=== PATIENT | female | born 1940 ===

== ENCOUNTER 2018-02-17 03:45 | Emergency (ER) | payer MEDICARE, OTHER ==
[2018-02-17 04:00] VITALS: BMI 37.0
[2018-02-17 04:06] VITALS: RESP 18; TEMP 98.7; O2SAT 98
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
[2018-02-17 05:40] VITALS: BP 134/90; PULSE 84
== END 2018-02-17 05:44 | disposition home or self-care (01) ==
LOC: H.ER 03:45
DX: F23 Brief psychotic disorder (principal); Z00.8 Encounter for other general examination

== ENCOUNTER 2018-02-18 08:18 | Inpatient (IN) | payer MEDICARE, OTHER ==
[2018-02-18 08:21] VITALS: BMI 29.2
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
[2018-02-18 09:03] LABS: BASO % 0.7 % (0.0-2.0); EOS # 0.1 K/uL (0.0-0.7); EOS % 1.2 % (0.0-4.0); HEMOGLOBIN 10.5 g/dL (12.0-16.0); LYMPH # 0.6 K/uL (1.0-4.3); LYMPH % 10.8 % (20.0-40.0); MEAN CELL VOLUME 80.4 fl (81.0-99.0); MEAN CORPUSCULAR HEMOGLOBIN 25.1 pg (27.0-31.0); MEAN CORPUSCULAR HGB CONC 31.2 g/dL (33.0-37.0); MONO # 0.6 K/uL (0.0-0.8); MONO % 10.9 % (0.0-10.0); NEUT # 4.1 K/uL (1.8-7.0); NEUT % 76.4 % (50.0-75.0); NRBC % 0.1 % (0.0-0.0); RBC 4.21 Mil/uL (3.80-5.20); RED CELL DISTRIBUTION WIDTH 17.5 % (11.5-14.5); WHITE BLOOD COUNT 5.3 K/uL (4.8-10.8)
[2018-02-18 09:29] LABS: ALB/GLOB RATIO 1.4 (1.0-2.1); ALBUMIN 4.3 g/dL (3.5-5.0); ALT/SGPT 32 U/L (9-52); AST/SGOT 36 U/L (14-36); BLOOD UREA NITROGEN 21 mg/dl (7-17); CALCIUM 9.1 mg/dL (8.4-10.2); GFR NON-AFRICAN AMERICAN > 60
[2018-02-18 09:29] LABS: SQUAMOUS EPITHIAL 29 /hpf (0-5); URINE BACTERIA FEW (<OCC); URINE BILIRUBIN NEGATIVE (NEGATIVE); URINE BLOOD SMALL (NEGATIVE); URINE CLARITY CLOUDY (Clear); URINE COLOR YELLOW (YELLOW); URINE GLUCOSE (UA) NEG (NEGATIVE); URINE LEUKOCYTE ESTERASE LARGE Leu/uL (Negative); URINE PROTEIN 30 mg/dL (NEGATIVE); URINE UROBILINOGEN 0.2-1.0 mg/dL (0.2-1.0)
[2018-02-18 09:52] LABS: BARBITURATES, UR NEGATIVE (NEGATIVE); BENZODIAZEPINES, UR NEGATIVE (NEGATIVE); OPIATES, UR NEGATIVE (NEGATIVE); PHENCYCLIDINE, UR NEGATIVE (NEGATIVE)
--- NOTE | 2018-02-18 10:00 | CT ---
Date of service: 02/18/2018 PROCEDURE: CT HEAD WITHOUT CONTRAST. HISTORY: AMS COMPARISON: Comparison made with prior CT scan brain 12/21/2009. TECHNIQUE: Axial computed tomography images were obtained through the head/brain without intravenous contrast. Radiation dose: Total exam DLP = 751.17 mGy-cm. This CT exam was performed using one or more of the following dose reduction techniques: Automated exposure control, adjustment of the mA and/or kV according to patient size, and/or use of iterative reconstruction technique. FINDINGS: HEMORRHAGE: No acute parenchymal, subarachnoid or extra-axial hemorrhage. BRAIN: Suspect minor chronic periventricular white matter ischemic changes. Moderate generalized volume loss. Mild vascular calcifications both carotid siphons and vertebral arteries. VENTRICLES: Unremarkable. No hydrocephalus. CALVARIUM: No acute calvarial fractures. PARANASAL SINUSES: Unremarkable as visualized. No significant inflammatory changes. MASTOID AIR CELLS: Unremarkable as visualized. No inflammatory changes. OTHER FINDINGS: None. IMPRESSION: No acute intracranial hemorrhage. Suspect minor chronic periventricular white matter ischemic changes. Moderate generalized volume loss.
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
[2018-02-18] MEDS ORDERED: Potassium Chloride 20 mEq/15 ml LIQ UD PO ONE (15:05)
[2018-02-18] MEDS ORDERED: Potassium Chloride 20 mEq ER Tab PO ONE ×2 (15:41→16:00)
[2018-02-18] MEDS ORDERED: cefTRIAXone (Rocephin) 1 gm Inj ONE (15:43)
--- NOTE | 2018-02-18 18:16 | RAD ---
Date of service: 02/18/2018 HISTORY: SOB COMPARISON: No prior. FINDINGS: LUNGS: Bibasilar opacities right greater than left likely represents atelectasis however developing infiltrates could be excluded with follow-up radiographs. PLEURA: No significant pleural effusion identified, no pneumothorax apparent. CARDIOVASCULAR: No a significant aortic atherosclerotic calcification present. Normal cardiac size. No pulmonary vascular congestion. OSSEOUS STRUCTURES: No significant abnormalities. VISUALIZED UPPER ABDOMEN: Normal. OTHER FINDINGS: None. IMPRESSION: Bibasilar opacities right greater than left likely represents atelectasis however developing infiltrates could be excluded with follow-up radiographs.
--- NOTE | 2018-02-18 23:47 | CARD ---
APPROVED REPORT Date of service: 02/18/2018 EKG Measurement Heart [id number] <Conclusion> Sinus rhythm with frequent premature atrial complexes Otherwise normal ECG
[2018-02-19 07:42] LABS: BLOOD UREA NITROGEN 19 mg/dl (7-17); CALCIUM 8.2 mg/dL (8.4-10.2); GFR NON-AFRICAN AMERICAN > 60
[2018-02-19 07:45] LABS: HEMOGLOBIN 10.2 g/dL (12.0-16.0); MEAN CORPUSCULAR HEMOGLOBIN 25.1 pg (27.0-31.0); MEAN CORPUSCULAR HGB CONC 31.7 g/dL (33.0-37.0); RBC 4.06 Mil/uL (3.80-5.20); RED CELL DISTRIBUTION WIDTH 17.7 % (11.5-14.5); WHITE BLOOD COUNT 4.6 K/uL (4.8-10.8)
--- NOTE | 2018-02-19 09:03 | CP.PCM.CON ---
History of Present Illness - History of Present Illness History of Present Illness: Psychiatry consult note CC: Acute paranoia/UTI HPI: 77 yo female w/ no known past psychiatric history, presents w/ acute paranoia about her neighbors turning off their electricity when she turns off their lights and also that they may be stealing her belongings and breaking into her apartment in the context of acute UTI. Patient has poor insight/judgment. She does not believe she has a UTI, despite being told by her primary doctors and advertising writer. She does not believe she is paranoid. She does not want acute psychiatric admission. Senior Consultant explained to patient that she would benefit from treatment with an antipsychotic such as Risperdal. She denies depression/anxiety/AH/VH/SI/HI. A + O x 3. PPHx: Denies past psychiatric history PMHX: Patient denies having any acute medical issues; h/o appendectomy SHx: Lives alone, denies drugs/etoh/cig use MSE: A + O x 3, calm, cooperative, mood/affect-broad/neutral, thought process- coherent, thought content- +Paranoia, denies AH/VH, speech normal, no SI/HI; poor I/J Impression: 77 yo female presents w/ paranoia in the context of UTI; acute psychosis could be secondary to acute UTI. Patient will need to be monitored to see if psychotic symptoms improve with treatment of UTI. -Recommend to start Risperdal 0.25 mg PO Daily@1700 -Patient not agreeable to inpatient psychiatric admission at this time -Recommend psychology consult to evaluate neurocognitive function Past Patient History - Past Medical History & Family History Past Medical History?: No - Past Social History Smoking Status: Never Smoked - CARDIAC Hx Cardiac Disorders: No Hx Hypertension: No - PULMONARY Hx Tuberculosis: No - NEUROLOGICAL HX Cerebrovascular Accident: No Hx Seizures: No - HEENT Hx HEENT Problems: No - RENAL Hx Chronic Kidney Disease: No - ENDOCRINE/METABOLIC Hx Endocrine Disorders: No - HEMATOLOGICAL/ONCOLOGICAL Hx Cancer: No Hx Human Immunodeficiency Virus (HIV): No - INTEGUMENTARY Hx Dermatological Problems: No - MUSCULOSKELETAL/RHEUMATOLOGICAL Hx Musculoskeletal Disorders: No Hx Falls: No - GASTROINTESTINAL Hx Gastrointestinal Disorders: No - GENITOURINARY/GYNECOLOGICAL Hx Genitourinary Disorders: No Hx Sexually Transmitted Disorders: No - PSYCHIATRIC Hx Substance Use: No - SURGICAL HISTORY Hx Surgeries: Yes Hx Appendectomy: Yes - ANESTHESIA Hx Anesthesia: Yes Hx Anesthesia Reactions: No Hx Malignant Hyperthermia: No Has any member of the family had a problem w/ anesthesia?: No Meds Allergies/Adverse Reactions: Allergies Allergy/AdvReac Type Severity Reaction Status Date / Time No Known Allergies Allergy Verified 02/17/18 04:00 - Medications Medications: Current Medications Enoxaparin Sodium (Lovenox) 40 mg SC DAILY [facility]; Protocol Ceftriaxone Sodium 1 gm/ (Sodium Chloride) 100 mls @ 100 mls/hr IVPB DAILY [facility]; Protocol Last Admin: 02/18/18 15:43 Dose: 100 mls/hr Results - Vital Signs Recent Vital Signs: Last Vital Signs Temp 98.0 F 02/19/18 08:07 Pulse 54 L 02/19/18 08:07 Resp 18 02/19/18 08:07 BP 163/79 H 02/19/18 08:07 Pulse Ox 97 02/19/18 08:07 - Labs Result Diagrams: 02/19/18 05:30 02/19/18 05:30 Labs: Laboratory Results - last 24 hr 02/18/18 02/18/18 02/18/18 08:45 08:45 09:00 WBC 5.3 RBC 4.21 Hgb 10.5 L Hct 33.8 L MCV 80.4 L MCH 25.1 L MCHC 31.2 L RDW 17.5 H Plt Count 261 MPV 9.0 Neut % (Auto) 76.4 H Lymph % (Auto) 10.8 L [place] % (Auto) 10.9 H Eos % (Auto) 1.2 Baso % (Auto) 0.7 Neut # (Auto) 4.1 Lymph # (Auto) 0.6 L [place] # (Auto) 0.6 Eos # (Auto) 0.1 Baso # (Auto) 0.0 ESR Sodium 142 Potassium 3.4 L Chloride 106 Carbon Dioxide 25 Anion Gap 14 BUN 21 H Creatinine 0.7 Est GFR ( Amer) > 60 Est GFR (Non-Af Amer) > 60 Random Glucose 107 H Calcium 9.1 Phosphorus Magnesium Total Bilirubin 1.0 AST 36 ALT 32 Alkaline Phosphatase 77 Troponin I < 0.0120 Total Protein 7.4 Albumin 4.3 Globulin 3.1 Albumin/Globulin Ratio 1.4 Vitamin B12 TSH 3rd Generation Urine Color Urine Clarity Urine pH Ur Specific [place] Urine Protein Urine Glucose (UA) Urine Ketones Urine Blood Urine Nitrate Urine Bilirubin Urine Urobilinogen Ur Leukocyte Esterase Urine RBC (Auto) Urine Microscopic WBC Ur Squamous Epith Cells Urine Bacteria Urine Opiates Screen Negative Urine Methadone Screen Negative Ur Barbiturates Screen Negative Ur Phencyclidine Scrn Negative Ur Amphetamines Screen Negative U Benzodiazepines Scrn Negative U Oth Cocaine Metabols Negative U Cannabinoids Screen Negative Alcohol, Quantitative < 10 HIV-1 Ab Rapid Screen 02/18/18 02/19/18 02/19/18 09:00 05:30 05:30 WBC 4.6 L RBC 4.06 Hgb 10.2 L Hct 32.0 L MCV 79.0 L MCH 25.1 L MCHC 31.7 L RDW 17.7 H Plt Count 221 MPV Neut % (Auto) Lymph % (Auto) [place] % (Auto) Eos % (Auto) Baso % (Auto) Neut # (Auto) Lymph # (Auto) [place] # (Auto) Eos # (Auto) Baso # (Auto) ESR 21 Sodium 140 Potassium 3.9 Chloride 107 Carbon Dioxide 26 Anion Gap 11 BUN 19 H Creatinine 0.6 L Est GFR ( Amer) > 60 Est GFR (Non-Af Amer) > 60 Random Glucose 85 Calcium 8.2 L Phosphorus 3.7 Magnesium 2.1 Total Bilirubin AST ALT Alkaline Phosphatase Troponin I Total Protein Albumin Globulin Albumin/Globulin Ratio Vitamin B12 464 TSH 3rd Generation 2.93 Urine Color Yellow Urine Clarity Cloudy Urine pH 5.0 Ur Specific [place] 1.028 Urine Protein 30 Urine Glucose (UA) Neg Urine Ketones 20 Urine Blood Small Urine Nitrate Negative Urine Bilirubin Negative Urine Urobilinogen 0.2-1.0 Ur Leukocyte Esterase Large Urine RBC (Auto) 31 H Urine Microscopic WBC 145 H Ur Squamous Epith Cells 29 H Urine Bacteria Few H Urine Opiates Screen Urine Methadone Screen Ur Barbiturates Screen Ur Phencyclidine Scrn Ur Amphetamines Screen U Benzodiazepines Scrn U Oth Cocaine Metabols U Cannabinoids Screen Alcohol, Quantitative HIV-1 Ab Rapid Screen 02/19/18 05:30 WBC RBC Hgb Hct MCV MCH MCHC RDW Plt Count MPV Neut % (Auto) Lymph % (Auto) [place] % (Auto) Eos % (Auto) Baso % (Auto) Neut # (Auto) Lymph # (Auto) [place] # (Auto) Eos # (Auto) Baso # (Auto) ESR Sodium Potassium Chloride Carbon Dioxide Anion Gap BUN Creatinine Est GFR ( Amer) Est GFR (Non-Af Amer) Random Glucose Calcium Phosphorus Magnesium Total Bilirubin AST ALT Alkaline Phosphatase Troponin I Total Protein Albumin Globulin Albumin/Globulin Ratio Vitamin B12 TSH 3rd Generation Urine Color Urine Clarity Urine pH Ur Specific [place] Urine Protein Urine Glucose (UA) Urine Ketones Urine Blood Urine Nitrate Urine Bilirubin Urine Urobilinogen Ur Leukocyte Esterase Urine RBC (Auto) Urine Microscopic WBC Ur Squamous Epith Cells Urine Bacteria Urine Opiates Screen Urine Methadone Screen Ur Barbiturates Screen Ur Phencyclidine Scrn Ur Amphetamines Screen U Benzodiazepines Scrn U Oth Cocaine Metabols U Cannabinoids Screen Alcohol, Quantitative HIV-1 Ab Rapid Screen Non reactive
[2018-02-19] MEDS: Enoxaparin 40 mg Syringe SC SCH (09:04)
--- NOTE | 2018-02-19 11:53 | CP.PCM.PN ---
<JoseFranco - Last Filed: 02/19/18 11:56> Subjective - Date & Time of Evaluation Date of Evaluation: 02/19/18 Time of Evaluation: 10:25 - Subjective Subjective: Seen at bedside in not acute distress. Afebrile. Patient with poor insight about condition and states she was brought against her will to hosp, states people thinks she is having hallucinations but she is not. States she doesnt have UTI anymore because she only needed fluids. States hasnt been eating or driking for 3 days because she has stayed awake all the time to watch for the people that are trying to steal from them at home. Denies any urinary symptoms. Tolerating PO. As per patient she lives alone. Objective - Vital Signs/Intake and Output Vital Signs (last 24 hours): Temp Pulse Resp BP Pulse Ox 98.0 F 54 L 18 163/79 H 97 02/19/18 08:07 02/19/18 08:07 02/19/18 08:07 02/19/18 08:07 02/19/18 08:07 - Medications Medications: Current Medications Enoxaparin Sodium (Lovenox) 40 mg SC DAILY [facility]; Protocol Last Admin: 02/19/18 09:04 Dose: 40 mg Ceftriaxone Sodium 1 gm/ (Sodium Chloride) 100 mls @ 100 mls/hr IVPB DAILY [facility]; Protocol Last Admin: 02/19/18 09:04 Dose: 100 mls/hr Risperidone (Risperidone Odt 0.25mg) 0.25 mg PO DAILY@1700 [facility] - Labs Labs: 02/19/18 05:30 02/19/18 05:30 - Constitutional Appears: Non-toxic, Confused - Eye Exam Eye Exam: EOMI, PERRL - ENT Exam ENT Exam: Mucous Membranes Moist - Respiratory Exam Respiratory Exam: Clear to Ausculation Bilateral, NORMAL BREATHING PATTERN. absent: Decreased Breath Sounds - Cardiovascular Exam Cardiovascular Exam: Irregular Rhythm, +S1, +S2. absent: Gallop - GI/Abdominal Exam GI & Abdominal Exam: Soft, Normal Bowel Sounds. absent: Tenderness - Extremities Exam Extremities Exam: Full ROM. absent: Calf Tenderness, Tenderness - Back Exam Back Exam: absent: CVA tenderness (L), CVA tenderness (R) - Neurological Exam Neurological Exam: Alert, Awake, Oriented x3 - Psychiatric Exam Psychiatric exam: Anxious Additional comments: Poor insight. Paranoid - Skin Skin Exam: Normal Color, Warm Assessment and Plan - Assessment and Plan (Free Text) Assessment: 77 y/o F with NO PMHx was admitted for evaluation and management of paranoid behavior/hallucinations and urinary tract infection. Paranoid behaviour -Possibly due to UTI vs dementia. -Psychiatry consult, Dr Ford. Advised to start Risperdal and call Psychology consult for neurocognitive eval -F/U CBC, BMP, TSH, RPR, HIV, vitamin B12, folate, ordered -Continue 1:1 observation. Urinary Tract infection -IV Ceftriaxone daily -F/U Urine Culture. -Afebrile. NO White count. -Patient denies symptoms Microcitic anemia Likely chronic No signs of active bleeding Patient denies PMHx F/U Iron studies Hypokalemia -Resolved -K 3.9 today DVT Prophylaxis -SCD's -Lovenox 40mg daily. <Keshav Rivera D - Last Filed: 02/19/18 12:55> Objective - Vital Signs/Intake and Output Vital Signs (last 24 hours): Temp Pulse Resp BP Pulse Ox 98.0 F 54 L 18 163/79 H 97 02/19/18 08:07 02/19/18 08:07 02/19/18 08:07 02/19/18 08:07 02/19/18 08:07 - Medications Medications: Current Medications Enoxaparin Sodium (Lovenox) 40 mg SC DAILY [facility]; Protocol Last Admin: 02/19/18 09:04 Dose: 40 mg Ceftriaxone Sodium 1 gm/ (Sodium Chloride) 100 mls @ 100 mls/hr IVPB DAILY [facility]; Protocol Last Admin: 02/19/18 09:04 Dose: 100 mls/hr Risperidone (Risperidone Odt 0.25mg) 0.25 mg PO DAILY@1700 [facility] - Labs Labs: 02/19/18 05:30 02/19/18 05:30 Attending/Attestation - Attestation I have personally seen and examined this patient.: Yes I have fully participated in the care of the patient.: Yes I have reviewed all pertinent clinical information, including history, physical exam and plan: Yes Notes (Text): 02/19/18 12:54 Patient seen and examined with resident. Case discussed and agreed with assessment.
[2018-02-19 12:28] LABS: IRON 24 ug/dL (37-170)
[2018-02-19 12:37] LABS: % IRON SATURATION 7 % (20-55); TOTAL IRON BINDING CAPACITY 335 ug/dL (250-450)
[2018-02-19 13:27] LABS: FOLATE 11.6 ng/mL
[2018-02-19] MEDS: RISPERIDONE 0.25 MG ODT PO SCH (17:04)
[2018-02-20 06:08] LABS: MEAN CELL VOLUME 80.4 fl (81.0-99.0); MEAN CORPUSCULAR HGB CONC 31.1 g/dL (33.0-37.0); RBC 4.02 Mil/uL (3.80-5.20); RED CELL DISTRIBUTION WIDTH 17.7 % (11.5-14.5); WHITE BLOOD COUNT 5.1 K/uL (4.8-10.8)
[2018-02-20 06:26] LABS: BLOOD UREA NITROGEN 13 mg/dl (7-17); CALCIUM 8.1 mg/dL (8.4-10.2); GFR NON-AFRICAN AMERICAN > 60
[2018-02-20] MEDS: Enoxaparin 40 mg Syringe SC SCH (10:08)
--- NOTE | 2018-02-20 10:50 | CP.PCM.PN ---
<Rudi Ndiaye - Last Filed: 02/20/18 13:18> Subjective - Date & Time of Evaluation Date of Evaluation: 02/20/18 Time of Evaluation: 09:25 - Subjective Subjective: 77 y/o F was evaluated and examined by bedside. pt reports feeling better than ever, has NO physical complaints. Pt is awake, alert and oriented to person, time and place, pt is requesting to be discharged since she believes she can be treated as outpatient. --Pt states she was brought against her will, she denies having hallucinations but still concerned about her neighbors doing something to her. --To be evaluated by psychologist today. Objective - Vital Signs/Intake and Output Vital Signs (last 24 hours): Temp Pulse Resp BP Pulse Ox 97.5 F L 65 20 171/64 H 95 02/20/18 08:22 02/20/18 08:22 02/20/18 08:22 02/20/18 08:22 02/20/18 08:22 - Medications Medications: Current Medications Enoxaparin Sodium (Lovenox) 40 mg SC DAILY [facility]; Protocol Last Admin: 02/20/18 10:08 Dose: 40 mg Ferrous Sulfate (Feosol) 325 mg PO BID [facility] Last Admin: 02/20/18 10:08 Dose: 325 mg Ceftriaxone Sodium 1 gm/ (Sodium Chloride) 100 mls @ 100 mls/hr IVPB DAILY [facility]; Protocol Last Admin: 02/20/18 10:06 Dose: 100 mls/hr Risperidone (Risperidone Odt 0.25mg) 0.25 mg PO DAILY@1700 [facility] Last Admin: 02/19/18 17:04 Dose: 0.25 mg - Labs Labs: 02/20/18 05:35 02/20/18 05:35 - Constitutional Appears: No Acute Distress - Head Exam Head Exam: ATRAUMATIC, NORMAL INSPECTION - Eye Exam Eye Exam: EOMI - ENT Exam ENT Exam: Mucous Membranes Moist - Neck Exam Neck Exam: Full ROM, Normal Inspection - Respiratory Exam Respiratory Exam: NORMAL BREATHING PATTERN. absent: Rales, Rhonchi, Wheezes - Cardiovascular Exam Cardiovascular Exam: REGULAR RHYTHM, +S1, +S2 - GI/Abdominal Exam GI & Abdominal Exam: Soft. absent: Distended, Guarding, Rigid, Tenderness - Extremities Exam Extremities Exam: Full ROM. absent: Calf Tenderness, Pedal Edema - Back Exam Back Exam: Full ROM - Neurological Exam Neurological Exam: Alert, Awake, Oriented x3 Assessment and Plan - Assessment and Plan (Free Text) Assessment: 77 y/o F with NO PMHx was admitted for evaluation and management of paranoid behavior/hallucinations and urinary tract infection. PLAN: >Paranoid behaviour --Possibly due to UTI vs dementia. --Psychiatry consult, Dr Ford. --On Risperdone 0.25 PO daily --Psychology consult for neurocognitive evaluation --Continue 1:1 observation. --F/U psychologist recommendations. >Urinary Tract infection --Afebrile. NO White count. --C/w IV Ceftriaxone daily --Urine Culture showed E. Coli resistant to TMP/SMZ. >Microcitic anemia --likely iron deficiency anemia. Iron levels decreased --No signs of active bleeding --Feosol 325mg PO BID,. >DVT Prophylaxis --SCD's --Lovenox 40mg daily. <Keshav Rivera D - Last Filed: 02/20/18 17:21> Objective - Vital Signs/Intake and Output Vital Signs (last 24 hours): Temp Pulse Resp BP Pulse Ox 98.1 F 65 18 155/76 H 98 02/20/18 16:33 02/20/18 16:33 02/20/18 16:33 02/20/18 16:33 02/20/18 16:33 - Medications Medications: Current Medications Enoxaparin Sodium (Lovenox) 40 mg SC DAILY [facility]; Protocol Last Admin: 02/20/18 10:08 Dose: 40 mg Ferrous Sulfate (Feosol) 325 mg PO BID [facility] Last Admin: 02/20/18 16:13 Dose: 325 mg Ceftriaxone Sodium 1 gm/ (Sodium Chloride) 100 mls @ 100 mls/hr IVPB DAILY [facility]; Protocol Last Admin: 02/20/18 10:06 Dose: 100 mls/hr Risperidone (Risperidone Odt 0.25mg) 0.25 mg PO DAILY@1700 [facility] Last Admin: 02/20/18 16:13 Dose: 0.25 mg - Labs Labs: 02/20/18 05:35 02/20/18 05:35 Attending/Attestation - Attestation I have personally seen and examined this patient.: Yes I have fully participated in the care of the patient.: Yes I have reviewed all pertinent clinical information, including history, physical exam and plan: Yes Notes (Text): 02/20/18 17:21 Patient seen and examined with resident. Case discussed and agreed with assessment.
[2018-02-20 14:34] LABS: SQUAMOUS EPITHIAL 2 /hpf (0-5); URINE BILIRUBIN NEGATIVE (NEGATIVE); URINE BLOOD NEGATIVE (NEGATIVE); URINE CLARITY CLEAR (Clear); URINE COLOR STRAW (YELLOW); URINE GLUCOSE (UA) NEG (NEGATIVE); URINE LEUKOCYTE ESTERASE NEG Leu/uL (Negative); URINE PROTEIN NEGATIVE (NEGATIVE); URINE UROBILINOGEN 0.2-1.0 mg/dL (0.2-1.0)
[2018-02-20] MEDS: RISPERIDONE 0.25 MG ODT PO SCH (16:13)
[2018-02-21] MEDS: Enoxaparin 40 mg Syringe SC SCH (08:25)
--- NOTE | 2018-02-21 11:58 | CP.PCM.PN ---
<Rudi Ndiaye - Last Filed: 02/21/18 11:53> Subjective - Date & Time of Evaluation Date of Evaluation: 02/21/18 Time of Evaluation: 09:45 - Subjective Subjective: 77 y/o F was evaluated and examined by bedside. Pt reports feeling very well, with NO physical complaints. Pt understands that she is being treated for urinary tract infection. Pt requesting to leave hospital since she feels perfectly fine, still states she has seen her neighbor inside her house and stealing her stuff. -Sister, Dianne Price was contacted, who stated that pt started seeing people on her apartment since 1 month ago. Sister went to apartment and could not find anyone. Sister endorses that before hallucinations, pt was healthy in mind and body, pt usually takes care of herself and finances. Pt does not take any chronic regular medication and does NOT drink alcohol, uses tobacco or rec drugs. Pt's children live in [place] and they are always in contact with patient daily. Objective - Vital Signs/Intake and Output Vital Signs (last 24 hours): Temp Pulse Resp BP Pulse Ox 97 F L 71 20 172/80 H 98 02/21/18 08:27 02/21/18 08:27 02/21/18 08:27 02/21/18 08:27 02/20/18 16:33 - Medications Medications: Current Medications Enoxaparin Sodium (Lovenox) 40 mg SC DAILY [facility]; Protocol Last Admin: 02/21/18 08:25 Dose: 40 mg Ferrous Sulfate (Feosol) 325 mg PO BID [facility] Last Admin: 02/21/18 08:26 Dose: 325 mg Ceftriaxone Sodium 1 gm/ (Sodium Chloride) 100 mls @ 100 mls/hr IVPB DAILY [facility]; Protocol Stop: 02/22/18 11:00 Last Admin: 02/21/18 08:27 Dose: 100 mls/hr Risperidone (Risperidone Odt 0.25mg) 0.25 mg PO DAILY@1700 [facility] Last Admin: 02/20/18 16:13 Dose: 0.25 mg - Labs Labs: 02/20/18 05:35 02/20/18 05:35 - Constitutional Appears: Well, No Acute Distress - Head Exam Head Exam: ATRAUMATIC, NORMAL INSPECTION - Eye Exam Eye Exam: EOMI, Normal appearance - ENT Exam ENT Exam: Mucous Membranes Moist - Neck Exam Neck Exam: Full ROM, Normal Inspection - Respiratory Exam Respiratory Exam: NORMAL BREATHING PATTERN. absent: Rales, Rhonchi, Wheezes - Cardiovascular Exam Cardiovascular Exam: +S1, +S2 - GI/Abdominal Exam GI & Abdominal Exam: Soft, Normal Bowel Sounds. absent: Guarding, Rigid, Tenderness - Extremities Exam Extremities Exam: Full ROM, Normal Inspection. absent: Calf Tenderness, Pedal Edema - Neurological Exam Neurological Exam: Alert, Awake, Oriented x3 Assessment and Plan - Assessment and Plan (Free Text) Assessment: 77 y/o F with NO PMHx was admitted for evaluation and management of paranoid behavior/hallucinations and urinary tract infection. --Urine Culture showed E. Coli. PLAN: >Paranoid behaviour --Possibly due to UTI vs dementia. --Psychiatry consult, Dr Ford. --Risperdone 0.25 PO daily --Psychology consult for neurocognitive evaluation --Continue 1:1 observation. --Dementia work-up negative. --F/U psychologist recommendations. >Urinary Tract infection --Afebrile. NO White count. --C/w IV Ceftriaxone (Day 4) >Microcitic anemia --likely iron deficiency anemia. Iron levels decreased --No signs of active bleeding --Feosol 325mg PO BID,. >DVT Prophylaxis --SCD's --Lovenox 40mg daily. <Keshav Rivera - Last Filed: 02/21/18 13:23> Objective - Vital Signs/Intake and Output Vital Signs (last 24 hours): Temp Pulse Resp BP Pulse Ox 97 F L 71 20 172/80 H 98 02/21/18 08:27 02/21/18 08:27 02/21/18 08:27 02/21/18 08:27 02/20/18 16:33 - Medications Medications: Current Medications Enoxaparin Sodium (Lovenox) 40 mg SC DAILY [facility]; Protocol Last Admin: 02/21/18 08:25 Dose: 40 mg Ferrous Sulfate (Feosol) 325 mg PO BID [facility] Last Admin: 02/21/18 08:26 Dose: 325 mg Ceftriaxone Sodium 1 gm/ (Sodium Chloride) 100 mls @ 100 mls/hr IVPB DAILY [facility]; Protocol Stop: 02/22/18 11:00 Last Admin: 02/21/18 08:27 Dose: 100 mls/hr Risperidone (Risperidone Odt 0.25mg) 0.25 mg PO DAILY@1700 [facility] Last Admin: 02/20/18 16:13 Dose: 0.25 mg - Labs Labs: 02/20/18 05:35 02/20/18 05:35 Attending/Attestation - Attestation I have personally seen and examined this patient.: Yes I have fully participated in the care of the patient.: Yes I have reviewed all pertinent clinical information, including history, physical exam and plan: Yes Notes (Text): 02/21/18 13:22 Patient seen and examined with resident. Case discussed and agreed with assessment.
[2018-02-21] MEDS: RISPERIDONE 0.25 MG ODT PO SCH (16:08)
[2018-02-22] MEDS: Enoxaparin 40 mg Syringe SC SCH (09:55)
--- NOTE | 2018-02-22 16:36 | CP.PCM.PN ---
<Rudi Ndiaye - Last Filed: 02/22/18 16:34> Subjective - Date & Time of Evaluation Date of Evaluation: 02/22/18 Time of Evaluation: 09:00 - Subjective Subjective: 77 y/o F was evaluated and examined by bedside. Pt reports feeling very well, with NO physical complaints. Pt is thankful for treatment of urinary tract infection. Pt requesting to leave hospital, but re-states that none wants to believe her about her neighbors. Objective - Vital Signs/Intake and Output Vital Signs (last 24 hours): Temp Pulse Resp BP Pulse Ox 98.4 F 67 18 157/71 H 97 02/22/18 16:26 02/22/18 16:26 02/22/18 16:26 02/22/18 16:26 02/22/18 16:26 - Medications Medications: Current Medications Ferrous Sulfate (Feosol) 325 mg PO BID [facility] Last Admin: 02/22/18 09:55 Dose: 325 mg Risperidone (Risperdal M-Tab) 0.5 mg PO DAILY@1700 [facility] - Labs Labs: 02/20/18 05:35 02/20/18 05:35 - Constitutional Appears: Well, No Acute Distress - Head Exam Head Exam: ATRAUMATIC, NORMAL INSPECTION - Eye Exam Eye Exam: EOMI, Normal appearance - ENT Exam ENT Exam: Mucous Membranes Moist - Neck Exam Neck Exam: Full ROM, Normal Inspection - Respiratory Exam Respiratory Exam: NORMAL BREATHING PATTERN. absent: Rales, Rhonchi, Wheezes, Respiratory Distress - Cardiovascular Exam Cardiovascular Exam: +S1, +S2. absent: Bradycardia, Tachycardia - GI/Abdominal Exam GI & Abdominal Exam: Soft, Normal Bowel Sounds. absent: Firm, Guarding, Tenderness - Extremities Exam Extremities Exam: Full ROM, Normal Inspection. absent: Calf Tenderness - Back Exam Back Exam: absent: CVA tenderness (L), CVA tenderness (R) - Neurological Exam Neurological Exam: Alert, Awake, Oriented x3 Assessment and Plan - Assessment and Plan (Free Text) Assessment: 77 y/o F with NO PMHx was admitted for evaluation and management of paranoid behavior/hallucinations and urinary tract infection. --Urine Culture showed E. Coli. PLAN: >Paranoid behaviour --Alert and oriented x3. --Possibly due to UTI vs dementia. --Psychiatry consult, Dr Logan. --Risperdone 0.25 PO daily --Continue 1:1 observation. --Screen for involuntary admission to [facility], ordered. Awaiting recommendations. >Urinary Tract infection --Uncomplicated --Afebrile. NO White count. --completed treatment, 5 days of Ceftriaxone. >Microcitic anemia --likely iron deficiency anemia. Iron levels decreased --No signs of active bleeding --Feosol 325mg PO BID,. >DVT Prophylaxis --SCD's --Lovenox 40mg daily. <Rafaela López - Last Filed: 02/25/18 00:36> Objective - Vital Signs/Intake and Output Vital Signs (last 24 hours): Temp Pulse Resp BP Pulse Ox 97.9 F 51 L 20 174/74 H 95 02/23/18 07:58 02/23/18 07:58 02/23/18 07:58 02/23/18 07:58 02/23/18 07:58 - Labs Labs: 02/20/18 05:35 02/20/18 05:35 Attending/Attestation - Attestation I have personally seen and examined this patient.: Yes I have fully participated in the care of the patient.: Yes I have reviewed all pertinent clinical information, including history, physical exam and plan: Yes Notes (Text): 02/25/18 00:36 agree with findings and plan as above
[2018-02-22] MEDS ORDERED: Risperidone M tab 0.5MG PO SCH (17:00)
[2018-02-23 07:59] VITALS: BP 174/74; PULSE 51; RESP 20; TEMP 97.9; O2SAT 95
[2018-02-23] MEDS ORDERED: Enoxaparin 40 mg Syringe SC ONE (09:00)
--- NOTE | 2018-02-23 17:12 | CP.PCM.DIS ---
<ZedlaRudi - Last Filed: 02/23/18 17:07> Provider - Provider Date of Admission: 02/20/18 12:44 Attending physician: Keshav Rivera MD Primary care physician: Carlos Sarabia Consults: 02/18/18 10:21 Crisis Evaluation As Ordered Comment: Physician Instructions: Reason For Exam: wandering, paranoia, repeat ED visit 02/18/18 14:50 Psychiatry Consult Routine Comment: Consulting Provider: Anuradha Ford Consulting Physician: Anuradha Ford Reason for Consult: Paranoid 02/19/18 10:35 Psychology Consult Routine Comment: Consulting Provider: Belle Horn Consulting Physician: Belle Horn Reason for Consult: Evaluate neurocognitive function Time Spent in preparation of Discharge (in minutes): 30 Diagnosis - Discharge Diagnosis (1) UTI (urinary tract infection), uncomplicated Status: Acute Comment: -Completed 5 days of IV Ceftriaxone. (2) Hallucination, visual Status: Acute Comment: -Risperidone 0.5mg daily was initiated. [facility] patient: does not meet involuntary admission. Hospital Course - Lab Results Lab Results: Micro Results 02/18/18 11:49 Urine Urine Culture - Final Escherichia Coli Most Recent Lab Values WBC 5.1 K/uL (4.8-10.8) 02/20/18 05:35 RBC 4.02 Mil/uL (3.80-5.20) 02/20/18 05:35 Hgb 10.0 g/dL (12.0-16.0) L 02/20/18 05:35 Hct 32.3 % (34.0-47.0) L 02/20/18 05:35 MCV 80.4 fl (81.0-99.0) L 02/20/18 05:35 MCH 25.0 pg (27.0-31.0) L 02/20/18 05:35 MCHC 31.1 g/dL (33.0-37.0) L 02/20/18 05:35 RDW 17.7 % (11.5-14.5) H 02/20/18 05:35 Plt Count 229 K/uL (130-400) 02/20/18 05:35 MPV 9.0 fl (7.2-11.7) 02/18/18 08:45 Neut % (Auto) 76.4 % (50.0-75.0) H 02/18/18 08:45 Lymph % (Auto) 10.8 % (20.0-40.0) L 02/18/18 08:45 [place] % (Auto) 10.9 % (0.0-10.0) H 02/18/18 08:45 Eos % (Auto) 1.2 % (0.0-4.0) 02/18/18 08:45 Baso % (Auto) 0.7 % (0.0-2.0) 02/18/18 08:45 Neut # (Auto) 4.1 K/uL (1.8-7.0) 02/18/18 08:45 Lymph # (Auto) 0.6 K/uL (1.0-4.3) L 02/18/18 08:45 [place] # (Auto) 0.6 K/uL (0.0-0.8) 02/18/18 08:45 Eos # (Auto) 0.1 K/uL (0.0-0.7) 02/18/18 08:45 Baso # (Auto) 0.0 K/uL (0.0-0.2) 02/18/18 08:45 ESR 21 mm/hr (0-30) 02/19/18 05:30 Retic Count 1.5 % (0.5-1.5) 02/19/18 12:00 Sodium 140 mmol/l (132-148) 02/20/18 05:35 Potassium 4.2 MMOL/L (3.6-5.0) 02/20/18 05:35 Chloride 107 mmol/L (98-107) 02/20/18 05:35 Carbon Dioxide 28 mmol/L (22-30) 02/20/18 05:35 Anion Gap 9 (10-20) L 02/20/18 05:35 BUN 13 mg/dl (7-17) 02/20/18 05:35 Creatinine 0.7 mg/dl (0.7-1.2) 02/20/18 05:35 Est GFR ( Amer) > 60 02/20/18 05:35 Est GFR (Non-Af Amer) > 60 02/20/18 05:35 POC Glucose (mg/dL) 113 mg/dL (65-110) H 02/18/18 08:38 Random Glucose 105 mg/dL (65-105) 02/20/18 05:35 Calcium 8.1 mg/dL (8.4-10.2) L 02/20/18 05:35 Phosphorus 3.7 mg/dl (2.5-4.5) 02/19/18 05:30 Magnesium 2.1 MG/DL (1.6-2.3) 02/19/18 05:30 Iron 24 ug/dL (37-170) L 02/19/18 12:00 TIBC 335 ug/dL (250-450) 02/19/18 12:00 % Saturation 7 % (20-55) L 02/19/18 12:00 Ferritin 7.8 ng/Ml (11.1-264.0) L 02/19/18 12:00 Total Bilirubin 1.0 mg/dl (0.2-1.3) 02/18/18 08:45 AST 36 U/L (14-36) 02/18/18 08:45 ALT 32 U/L (9-52) 02/18/18 08:45 Alkaline Phosphatase 77 U/L (38-126) 02/18/18 08:45 Troponin I < 0.0120 ng/mL (0.00-0.120) 02/18/18 08:45 Total Protein 7.4 G/DL (6.3-8.2) 02/18/18 08:45 Albumin 4.3 g/dL (3.5-5.0) 02/18/18 08:45 Globulin 3.1 gm/dL (2.2-3.9) 02/18/18 08:45 Albumin/Globulin Ratio 1.4 (1.0-2.1) 02/18/18 08:45 Vitamin B12 464 pg/mL (239-931) 02/19/18 05:30 Folate 11.6 ng/mL 02/19/18 05:30 TSH 3rd Generation 2.93 mIU/ML (0.46-4.68) 02/19/18 05:30 Urine Color Straw (YELLOW) 02/20/18 14:15 Urine Clarity Clear (Clear) 02/20/18 14:15 Urine pH 6.0 (5.0-8.0) 02/20/18 14:15 Ur Specific [place] 1.006 (1.003-1.030) 02/20/18 14:15 Urine Protein Negative mg/dL (NEGATIVE) 02/20/18 14:15 Urine Glucose (UA) Neg mg/dL (NEGATIVE) 02/20/18 14:15 Urine Ketones Negative mg/dL (NEGATIVE) 02/20/18 14:15 Urine Blood Negative (NEGATIVE) 02/20/18 14:15 Urine Nitrate Negative (NEGATIVE) 02/20/18 14:15 Urine Bilirubin Negative (NEGATIVE) 02/20/18 14:15 Urine Urobilinogen 0.2-1.0 mg/dL (0.2-1.0) 02/20/18 14:15 Ur Leukocyte Esterase Neg Ingris/uL (Negative) 02/20/18 14:15 Urine RBC (Auto) < 1 /hpf (0-3) 02/20/18 14:15 Urine Microscopic WBC < 1 /hpf (0-5) 02/20/18 14:15 Ur Squamous Epith Cells 2 /hpf (0-5) 02/20/18 14:15 Urine Bacteria Few (<OCC) H 02/18/18 09:00 Urine Opiates Screen Negative (NEGATIVE) 02/18/18 09:00 Urine Methadone Screen Negative (NEGATIVE) 02/18/18 09:00 Ur Barbiturates Screen Negative (NEGATIVE) 02/18/18 09:00 Ur Phencyclidine Scrn Negative (NEGATIVE) 02/18/18 09:00 Ur Amphetamines Screen Negative (NEGATIVE) 02/18/18 09:00 U Benzodiazepines Scrn Negative (NEGATIVE) 02/18/18 09:00 U Oth Cocaine Metabols Negative (NEGATIVE) 02/18/18 09:00 U Cannabinoids Screen Negative (NEGATIVE) 02/18/18 09:00 Alcohol, Quantitative < 10 mg/dl (0-10) 02/18/18 08:45 RPR Nonreactive (NONREACTIVE) 02/19/18 05:30 HIV-1 Ab Rapid Screen Non reactive (NON REAC) 02/19/18 05:30 - Hospital Course Hospital Course: 77 y/o F with NO PMHx was admitted for evaluation and management of paranoid behavior/hallucinations and urinary tract infection. Pt states her neighbors are getting inside her apartment and stealing staff such as a [place] sombrero and her wallet with her documents. Pt was evaluated by psychiatrist who initiated pt on Risperidone 0.5mg daily, and offered patient voluntary admission to psychiatry unit, pt declined offer since pt beilieves it is unnecessary. --Head CT was unremakable, Bloodwork (CBC, CMP, folate, vit B12, RPR, HIV, ESR, iron panel) was unremarkable except for low serum Iron. Pt was initiated on Iron supplementation, Feosol 325mg PO BID. --Urine Culture showed E. Coli. Pt completed 5 days of IV Ceftriaxone. Repeated urinalysis showedf NO infection. --Screen for involuntary admission to [facility] [place] performed. Pt did not meet for involuntary admission. --Today, pt was feeling well, NO complaints. Pt stable, tolerating PO, discharged home with Rx for Risperidone 0.5mg daily and Feosol 325mg PO BID. F/U with PCP within 1 week. - Date & Time of H&P Date of H&P: 02/18/18 Time of H&P: 14:21 Discharge Exam - Head Exam Head Exam: ATRAUMATIC, NORMAL INSPECTION - Eye Exam Eye Exam: EOMI, Normal appearance - ENT Exam ENT Exam: Mucous Membranes Moist - Neck Exam Neck exam: Full Rom, Normal Inspection - Respiratory Exam Respiratory Exam: Clear to PA & Lateral, NORMAL BREATHING PATTERN - Cardiovascular Exam Cardiovascular Exam: REGULAR RHYTHM, +S1, +S2 - GI/Abdominal Exam GI & Abdominal Exam: Normal Bowel Sounds, Soft, Unremarkable. absent: Distended, Firm, Guarding, Tenderness - Extremities Exam Extremities exam: full ROM, normal inspection - Neurological Exam Neurological exam: Alert, Oriented x3 Discharge Plan - Discharge Medications Prescriptions: RX: Ferrous Sulfate [Feosol] 325 mg PO BID #30 tab RX: Risperidone [Risperdal M-TAB] 0.5 mg PO DAILY@1700 #20 odt - Follow Up Plan Condition: FAIR Disposition: HOME/ ROUTINE Instructions: Urinary Tract Infection, Adult (DC), Altered Mental Status (DC) Additional Instructions: hacer peter con ackerman doctor primario dentro 1 semana Referrals: Carlos Lee MD [Staff Provider] - Anuradha Ford MD [Medical Doctor] - <Rafaela López - Last Filed: 02/25/18 00:28> Provider - Provider Date of Admission: 02/20/18 12:44 Attending physician: Keshav Rivera MD Consults: 02/18/18 10:21 Crisis Evaluation As Ordered Comment: Physician Instructions: Reason For Exam: wandering, paranoia, repeat ED visit 02/18/18 14:50 Psychiatry Consult Routine Comment: Consulting Provider: Anuradha Ford Consulting Physician: Anuradha Ford Reason for Consult: Paranoid 02/19/18 10:35 Psychology Consult Routine Comment: Consulting Provider: Belle Horn Consulting Physician: Belle Horn Reason for Consult: Evaluate neurocognitive function Hospital Course - Lab Results Lab Results: Micro Results 02/18/18 11:49 Urine Urine Culture - Final Escherichia Coli Most Recent Lab Values WBC 5.1 K/uL (4.8-10.8) 02/20/18 05:35 RBC 4.02 Mil/uL (3.80-5.20) 02/20/18 05:35 Hgb 10.0 g/dL (12.0-16.0) L 02/20/18 05:35 Hct 32.3 % (34.0-47.0) L 02/20/18 05:35 MCV 80.4 fl (81.0-99.0) L 02/20/18 05:35 MCH 25.0 pg (27.0-31.0) L 02/20/18 05:35 MCHC 31.1 g/dL (33.0-37.0) L 02/20/18 05:35 RDW 17.7 % (11.5-14.5) H 02/20/18 05:35 Plt Count 229 K/uL (130-400) 02/20/18 05:35 MPV 9.0 fl (7.2-11.7) 02/18/18 08:45 Neut % (Auto) 76.4 % (50.0-75.0) H 02/18/18 08:45 Lymph % (Auto) 10.8 % (20.0-40.0) L 02/18/18 08:45 [place] % (Auto) 10.9 % (0.0-10.0) H 02/18/18 08:45 Eos % (Auto) 1.2 % (0.0-4.0) 02/18/18 08:45 Baso % (Auto) 0.7 % (0.0-2.0) 02/18/18 08:45 Neut # (Auto) 4.1 K/uL (1.8-7.0) 02/18/18 08:45 Lymph # (Auto) 0.6 K/uL (1.0-4.3) L 02/18/18 08:45 [place] # (Auto) 0.6 K/uL (0.0-0.8) 02/18/18 08:45 Eos # (Auto) 0.1 K/uL (0.0-0.7) 02/18/18 08:45 Baso # (Auto) 0.0 K/uL (0.0-0.2) 02/18/18 08:45 ESR 21 mm/hr (0-30) 02/19/18 05:30 Retic Count 1.5 % (0.5-1.5) 02/19/18 12:00 Sodium 140 mmol/l (132-148) 02/20/18 05:35 Potassium 4.2 MMOL/L (3.6-5.0) 02/20/18 05:35 Chloride 107 mmol/L (98-107) 02/20/18 05:35 Carbon Dioxide 28 mmol/L (22-30) 02/20/18 05:35 Anion Gap 9 (10-20) L 02/20/18 05:35 BUN 13 mg/dl (7-17) 02/20/18 05:35 Creatinine 0.7 mg/dl (0.7-1.2) 02/20/18 05:35 Est GFR ( Amer) > 60 02/20/18 05:35 Est GFR (Non-Af Amer) > 60 02/20/18 05:35 POC Glucose (mg/dL) 113 mg/dL (65-110) H 02/18/18 08:38 Random Glucose 105 mg/dL (65-105) 02/20/18 05:35 Calcium 8.1 mg/dL (8.4-10.2) L 02/20/18 05:35 Phosphorus 3.7 mg/dl (2.5-4.5) 02/19/18 05:30 Magnesium 2.1 MG/DL (1.6-2.3) 02/19/18 05:30 Iron 24 ug/dL (37-170) L 02/19/18 12:00 TIBC 335 ug/dL (250-450) 02/19/18 12:00 % Saturation 7 % (20-55) L 02/19/18 12:00 Ferritin 7.8 ng/Ml (11.1-264.0) L 02/19/18 12:00 Total Bilirubin 1.0 mg/dl (0.2-1.3) 02/18/18 08:45 AST 36 U/L (14-36) 02/18/18 08:45 ALT 32 U/L (9-52) 02/18/18 08:45 Alkaline Phosphatase 77 U/L (38-126) 02/18/18 08:45 Troponin I < 0.0120 ng/mL (0.00-0.120) 02/18/18 08:45 Total Protein 7.4 G/DL (6.3-8.2) 02/18/18 08:45 Albumin 4.3 g/dL (3.5-5.0) 02/18/18 08:45 Globulin 3.1 gm/dL (2.2-3.9) 02/18/18 08:45 Albumin/Globulin Ratio 1.4 (1.0-2.1) 02/18/18 08:45 Vitamin B12 464 pg/mL (239-931) 02/19/18 05:30 Folate 11.6 ng/mL 02/19/18 05:30 TSH 3rd Generation 2.93 mIU/ML (0.46-4.68) 02/19/18 05:30 Urine Color Straw (YELLOW) 02/20/18 14:15 Urine Clarity Clear (Clear) 02/20/18 14:15 Urine pH 6.0 (5.0-8.0) 02/20/18 14:15 Ur Specific [place] 1.006 (1.003-1.030) 02/20/18 14:15 Urine Protein Negative mg/dL (NEGATIVE) 02/20/18 14:15 Urine Glucose (UA) Neg mg/dL (NEGATIVE) 02/20/18 14:15 Urine Ketones Negative mg/dL (NEGATIVE) 02/20/18 14:15 Urine Blood Negative (NEGATIVE) 02/20/18 14:15 Urine Nitrate Negative (NEGATIVE) 02/20/18 14:15 Urine Bilirubin Negative (NEGATIVE) 02/20/18 14:15 Urine Urobilinogen 0.2-1.0 mg/dL (0.2-1.0) 02/20/18 14:15 Ur Leukocyte Esterase Neg Ingris/uL (Negative) 02/20/18 14:15 Urine RBC (Auto) < 1 /hpf (0-3) 02/20/18 14:15 Urine Microscopic WBC < 1 /hpf (0-5) 02/20/18 14:15 Ur Squamous Epith Cells 2 /hpf (0-5) 02/20/18 14:15 Urine Bacteria Few (<OCC) H 02/18/18 09:00 Urine Opiates Screen Negative (NEGATIVE) 02/18/18 09:00 Urine Methadone Screen Negative (NEGATIVE) 02/18/18 09:00 Ur Barbiturates Screen Negative (NEGATIVE) 02/18/18 09:00 Ur Phencyclidine Scrn Negative (NEGATIVE) 02/18/18 09:00 Ur Amphetamines Screen Negative (NEGATIVE) 02/18/18 09:00 U Benzodiazepines Scrn Negative (NEGATIVE) 02/18/18 09:00 U Oth Cocaine Metabols Negative (NEGATIVE) 02/18/18 09:00 U Cannabinoids Screen Negative (NEGATIVE) 02/18/18 09:00 Alcohol, Quantitative < 10 mg/dl (0-10) 02/18/18 08:45 RPR Nonreactive (NONREACTIVE) 02/19/18 05:30 HIV-1 Ab Rapid Screen Non reactive (NON REAC) 02/19/18 05:30 Attending/Attestation - Attestation I have personally seen and examined this patient.: Yes I have fully participated in the care of the patient.: Yes I have reviewed all pertinent clinical information, including history, physical exam and plan: Yes Notes (Text): 02/25/18 00:28 agree with findings and plan as above
== END 2018-02-23 15:00 | disposition home or self-care (01) | DRG 690 ==
LOC: H.ER 08:18 → H.ERHOLD 13:43 → UNDOADMOB 13:43 → INTOOBSV 13:43 → H.MEDSURG1 18:24 → H.ERHOLD 18:24 → H.MEDSURG1 02-20 12:44 → OBSVTOIN 02-20 12:44
DX: N39.0 Urinary tract infection, site not specified (principal); F06.8 Other specified mental disorders due to known physiological condition; B96.20 Unspecified Escherichia coli [E. coli] as the cause of diseases classified elsewhere; E87.6 Hypokalemia; D50.9 Iron deficiency anemia, unspecified; R44.1 Visual hallucinations